=== PATIENT | female | born 1960 | race Two or more races ===

== ENCOUNTER 2016-12-28 06:29 | Emergency (ER) | payer OTHER ==
[~2016-12-28] VITALS: Ht 157.5 cm; Wt 72.6 kg
[2016-12-28 07:24] VITALS: BP 130/85
[2016-12-28] MEDS ORDERED: KETOROLAC TROMETH 60MG/2ML VIAL IM ONE (07:45)
[2016-12-28] MEDS ORDERED: BACITRACIN TOP OINT 1 UD PKG TOP ONE (08:00)
[2016-12-28] MEDS ORDERED: TETANUS-DIPTH-ACEL PERTUSSIS 0.5ML SYRG IM ONE (08:30)
== END 2016-12-28 08:39 | disposition home or self-care (01) ==
LOC: EDBD 06:29 → ER 06:32
DX: S50.11XA Contusion of right forearm, initial encounter (principal); F17.210 Nicotine dependence, cigarettes, uncomplicated; W23.1XXA Caught, crushed, jammed, or pinched between stationary objects, initial encounter; Y93.89 Activity, other specified; Y99.0 Civilian activity done for income or pay; Y92.89 Other specified places as the place of occurrence of the external cause
CPT/HCPCS: 73080; 73090; 90471; 90715; 96372; 99284; J1885

== ENCOUNTER 2023-11-06 19:02 | Emergency (ER) | payer MEDICARE, OTHER ==
[~2023-11-06] VITALS: Ht 165.1 cm; Wt 81.8 kg
[2023-11-06 19:10] VITALS: BP 122/74; PULSE 114; RESP 16; O2SAT 98
[2023-11-06] MEDS ORDERED: HYDROcodone-ACET 5/325MG TAB PO ONE (20:45)
[2023-11-06 22:59] LABS: Amphetamine Screen, Urine Neg (NEGATIVE); Barbiturate Scree,Urine Neg (NEGATIVE); Benzodiazephine Screen, Urine Neg (NEGATIVE); Cannabinoid Screen, Urine Pos (NEGATIVE); Cocaine Screen, Urine Neg (NEGATIVE); Opiate Scree,Urine Neg (NEGATIVE); Phencyclidine Screen, Urine Neg (NEGATIVE)
[2023-11-06] MEDS ORDERED: IBUP-1456 PO (23:29)
== END 2023-11-07 04:45 | disposition left against medical advice (07) ==
LOC: EDBD 19:02 → ER 19:02
DX: S83.92XA Sprain of unspecified site of left knee, initial encounter (principal); S00.83XA Contusion of other part of head, initial encounter; S30.0XXA Contusion of lower back and pelvis, initial encounter; Y08.89XA Assault by other specified means, initial encounter; Y93.89 Activity, other specified; Y92.039 Unspecified place in apartment as the place of occurrence of the external cause; Y99.8 Other external cause status; F17.210 Nicotine dependence, cigarettes, uncomplicated
CPT/HCPCS: 29505; 70450; 70486; 72125; 72128; 72131; 73562; 80307